=== PATIENT | female | born 1990 | race Caucasian/White ===

== ENCOUNTER 2016-12-09 18:38 | Emergency (ER) | payer OTHER ==
[2016-12-09] MEDS ORDERED: POTASSIUM CL 20 MEQ/15 ML UDCUP PO ONE (19:02)
[2016-12-09] MEDS ORDERED: POTASSIUM Cl (KCl) 100 ML IV ONE (19:02)
[2016-12-09] MEDS ORDERED: NS 1,000 ML IV ONE (19:04)
--- NOTE | 2016-12-09 19:12 | EDPHY ---
HPI/HX/ROS/PE/MDM Narrative: Chief complaint: Nausea, vomiting, diarrhea, abdominal pain HPI: 26-year-old student sent from [facility] at [facility] with several days of nausea vomiting and diarrhea. Patient states that she was traveling abroad in [place] and in the [place]. Returned at the end of last week. Forty years ago started having nausea vomiting and intermittent watery diarrhea. She does have a history of irritable bowel syndrome and the symptoms are somewhat similar but they persisted over the course last 4 days. No fevers or chills. Symptoms get better any evening but recurring in the following morning. She has had some epigastric abdominal pain associated which is also consistent with her irritable bowel. She was seen at the [facility] on campus was noted to have a potassium level of 2.8. She had a normal white count. She is given IV fluids and Toradol today and sent here for further evaluation. ECG obtained there shows some nonspecific changes. ROS: 10 point Review of Systems is negative except as noted in the HPI. Physical exam: Gen: Awake, Alert, No Distress HEENT: Nose: no rhinorrhea Eyes: PERRLA, EOMI Mouth: Moist mucosa Neck: Supple, no JVD Chest: nontender, lungs clear to auscultation Heart: S1, S2 normal, no murmur Abd: Soft, mild epigastric tenderness, space no lower abdominal tenderness, no right upper quadrant tenderness, no guarding Back: no CVA tenderness, no midline tenderness Ext: no edema, non-tender Skin: no rash Neuro: CN II-XII intact, Sensation grossly intact, Strength 5/5 in bilateral upper and lower extremities ED Course: Patient is improved after IV and oral potassium replacement. She is tolerating p.o.. No nausea or vomiting here. Has not had any further episodes of diarrhea. She is feeling well and does not want to stay in the hospital any longer. Will send her home oral potassium supplementation instructions to follow up with [facility] in about a week to have her potassium level recheck. She should return here for any chest pain, shortness of breath, palpitations, or any other concerns. - Data Points Medications Given: Discontinued Medications Sodium Chloride (Ns) 1,000 mls @ 1,000 mls/hr IV ONCE ONE Stop: 12/09/16 20:03 Last Admin: 12/09/16 19:15 Dose: 1,000 mls Potassium Chloride (Potassium Cl 10 Meq (Premix)) 100 mls @ 100 mls/hr IV EDNOW ONE Stop: 12/09/16 20:01 Last Admin: 12/09/16 19:15 Dose: 100 mls Potassium Chloride (Potassium Chloride Oral Liquid) 40 meq PO EDNOW ONE Stop: 12/09/16 19:03 Last Admin: 12/09/16 19:15 Dose: 40 meq General Time Seen by Provider: 12/09/16 18:46 Initial Vital Signs: Initial Vital Signs Temperature (C) 37.1 C 12/09/16 18:40 Heart Rate 104 H 12/09/16 18:40 Respiratory Rate 16 12/09/16 18:40 Blood Pressure 123/76 H 12/09/16 18:40 O2 Sat (%) 98 12/09/16 18:40 O2 Delivery Mode Room Air Allergies/Adverse Reactions: No Known Allergies Allergy (Unverified 12/09/16 18:41) Home Medications: Medication Instructions Recorded Potassium Cl [Klor-Con 20 meq (*)] 20 meq PO DAILY #14 tab 12/09/16 Departure - Departure Disposition: Home, Routine, Self-Care Clinical Impression: Gastroenteritis, Diarrhea, Hypokalemia Condition: Good Instructions: Hypokalemia (ED), Gastroenteritis (ED), Dehydration (ED) Additional Instructions: Take potassium supplements daily. Follow up at [facility] in a week to have your potassium level recheck. Return to the emergency department for weakness, nausea, vomiting, diarrhea, fevers, chills, chest pain, palpitations, fainting, or any other concerns. Referrals: [facility] [Outside] - As per Instructions Prescriptions: Potassium Cl [Klor-Con 20 meq (*)] 20 meq PO DAILY #14 tab
[2016-12-09 20:38] VITALS: BP 112/76; PULSE 71; RESP 15; TEMP 98.4; O2SAT 96
== END 2016-12-09 20:38 | disposition home or self-care (01) ==
DX: K52.9 Noninfective gastroenteritis and colitis, unspecified (principal); E87.6 Hypokalemia
CPT/HCPCS: 96365